=== PATIENT | female | born 1945 | race Caucasian/White ===

== ENCOUNTER 2016-08-14 09:02 | Observation (INO) | payer OTHER ==
[~2016-08-14] VITALS: Ht 160 cm; Wt 107.9 kg
[~2016-08-14 09:02] MED LIST: ANASTROZOLE1 MG PO; ARIMIDEX1 MG; ASPIRIN81 M1; CALTRATE 6001 TABLET PO; CALTRATE 600600 MG; CELEBREX200 MG PO; CLEOCIN300 MG PO; COZAAR50 MG PO; FOLIC ACID1 MG PO; FUROSEMIDE40 MG PO; HYDROCHLOROTHIA50 MG PO; HYDROXYCHLOROQ200 MG PO; LANSOPRAZOLE30 MG PO; LEVOTHYROXINE50 MCG PO; LIPITOR40 MG PO; LO-DOSE ASPIRIN81 M1 PO; LORAZEPAM0.5 MG PO; LOSARTAN POTASS50 MG PO; LOW DOSE ASPIRI81 M1 PO; METHOTREXATE2.5 MG PO; PLAQUENIL200 MG PO; PREDNISONE5 MG PO; PREVACID30 MG PO; SINGULAIR10 MG; SINGULAIR10 MG PO; SPIRIVA1 INHALATI IH; SYNTHROID50 MCG PO; TRAMADOL HCL50 MG PO; ULTRAM50 MG; ULTRAM50 MG PO; VENTOLIN HFA18 GM IH; VITAMIN B12-FO1 EACH PO; VITAMIN D250000 UNIT PO
[2016-08-14 09:53] LABS: HEMATOCRIT 37.7 % (36.0-46.0); MCH 31.5 PG (29.0-34.0); MCHC 32.9 G/DL (30.0-36.0); MCV 95.7 FL (83-99); MEAN PLAT.VOLUME 9.3 uM^3 (9.5-12.4); PLATELET COUNT 265 K/uL (156-360); RBC DIS.WIDTH-CV 14.6 % (11.8-14.6); RBC DIS.WIDTH-SD 50.8 % (39-53); RED BLOOD COUNT 3.94 M/uL (3.80-5.20); WHITE BLOOD COUNT 6.1 K/uL (4.1-10.2)
[2016-08-14 10:01] LABS: CHLORIDE 101 mEq/L (99-109); POTASSIUM 3.6 mEq/L (3.7-5.4); SODIUM 139 mEq/L (136-147)
[2016-08-14 10:03] LABS: GLUCOSE 86 mg/dL (70-99)
[2016-08-14 10:05] LABS: ANION GAP 14 MEQ/L (2-14)
[2016-08-14 10:07] LABS: GFR ESTIMATE (CALCULATED) 58 mL/min/
[2016-08-14 10:08] LABS: UREA NITROGEN (BUN) 27 mg/dL (9-23)
[2016-08-14 10:13] LABS: TROP-I INTERPRETATION NEGATIVE; TROPONIN-I < 0.01 ng/mL (0.0-0.30)
[2016-08-14] MEDS ORDERED: ERGOCALCIF50000 UNIT PO (11:18)
[2016-08-14] MEDS ORDERED: BREO ELLIPTA I1 EACH IH (11:24)
[2016-08-14] MEDS ORDERED: TYLENOL EXTRA500 MG PO (11:25)
[2016-08-14] MEDS ORDERED: ALLERGY RELIE15.8 ML BOTH NARES (11:26)
[2016-08-14] MEDS ORDERED: KEFLEX500 MG PO (11:30)
[2016-08-14 15:00] VITALS: BP 140/60
[2016-08-14 15:07] LABS: D-DIMER ELISA 0.41 mg/L FEU (< 0.57)
[2016-08-14 16:00] VITALS: BP 123/59
[2016-08-14 18:27] LABS: TROP-I INTERPRETATION NEGATIVE; TROPONIN-I < 0.01 ng/mL (0.0-0.30)
[2016-08-14 20:13] VITALS: BP 134/59
[2016-08-15 00:45] VITALS: BP 122/65; BP 135/63
[2016-08-15 01:13] LABS: TROP-I INTERPRETATION NEGATIVE; TROPONIN-I < 0.01 ng/mL (0.0-0.30)
[2016-08-15 03:27] VITALS: BP 160/64
[2016-08-15 05:46] LABS: HEMATOCRIT 35.3 % (36.0-46.0); MCH 31.2 PG (29.0-34.0); MCV 97.5 FL (83-99); MEAN PLAT.VOLUME 10.3 uM^3 (9.5-12.4); PLATELET COUNT 254 K/uL (156-360); RBC DIS.WIDTH-CV 14.9 % (11.8-14.6); RBC DIS.WIDTH-SD 53.1 % (39-53); RED BLOOD COUNT 3.62 M/uL (3.80-5.20); WHITE BLOOD COUNT 6.4 K/uL (4.1-10.2)
[2016-08-15 06:27] LABS: ANION GAP 11 MEQ/L (2-14); CHLORIDE 102 MEQ/L (99-109); GFR ESTIMATE (CALCULATED) > 59 mL/min/; GLUCOSE 84 mg/dL (70-99); POTASSIUM 3.1 MEQ/L (3.7-5.4); SAMPLE HEMOLYSIS CHECK 0; SAMPLE ICTERIC CHECK 0; SAMPLE LIPEMIA CHECK 0; SODIUM 140 MEQ/L (136-147); UREA NITROGEN (BUN) 21 mg/dL (9-23)
[2016-08-15 07:38] VITALS: BP 137/60
[2016-08-15 07:50] VITALS: BP 112/69
[2016-08-15] MEDS ORDERED: LIDOCAINE700 MG TD (09:46)
[2016-08-15 10:33] VITALS: BP 140/65
== END 2016-08-15 11:27 | disposition home or self-care (01) ==
LOC: EME 09:02 → 5WEST 13:39 → EDOF 13:39 → 5WEST 14:51
PROVIDERS: Emergency Medicine; Hospitalist
DX: M54.12 Radiculopathy, cervical region (principal); R07.9 Chest pain, unspecified; M06.9 Rheumatoid arthritis, unspecified; E66.01 Morbid (severe) obesity due to excess calories; Z85.3 Personal history of malignant neoplasm of breast; M25.512 Pain in left shoulder; M25.612 Stiffness of left shoulder, not elsewhere classified; Z68.41 Body mass index [BMI] 40.0-44.9, adult
CPT/HCPCS: 71020; 72125; 73030; 80048; 84484; 85027; 85379; 93005; 94640 76; 99202; 99281; 99285; G0378

== ENCOUNTER 2017-05-11 06:23 | Emergency (ER) | payer OTHER ==
[~2017-05-11] VITALS: Ht 160 cm; Wt 107.2 kg
[~2017-05-11 06:23] MED LIST changes: +ALLERGY RELIE15.8 ML BOTH NARES; +BREO ELLIPTA I1 EACH IH; +ERGOCALCIF50000 UNIT PO; +KEFLEX500 MG PO; +LIDOCAINE700 MG TD; +TYLENOL EXTRA500 MG PO
[2017-05-11 08:41] LABS: BASOPHIL COUNT 0.1 K/uL (0-0.1); EOSINOPHIL (%) 2.9 % (0-5); EOSINOPHIL COUNT 0.2 K/uL (0-0.3); HEMATOCRIT 35.9 % (36.0-46.0); IMMATURE GRANULOCYTE (%) 0.3 % (0.0-0.7); INSTRUMENT ABS NEUTROPHIL CT 4.5 K/uL; LYMPHOCYTE COUNT 1.4 K/uL (1.0-2.8); MCH 30.6 PG (29.0-34.0); MCHC 32.9 G/DL (30.0-36.0); MEAN PLAT.VOLUME 9.9 uM^3 (9.5-12.4); MONOCYTE (%) 9.5 % (3-12); MONOCYTE COUNT 0.7 K/uL (0-0.8); NEUTROPHIL (%) 65.9 % (45-76); NEUTROPHIL COUNT 4.5 K/uL (1.8-6.4); PLATELET COUNT 299 K/uL (156-360); RBC DIS.WIDTH-CV 14.4 % (11.8-14.6); RBC DIS.WIDTH-SD 48.4 % (39-53); RED BLOOD COUNT 3.86 M/uL (3.80-5.20); WHITE BLOOD COUNT 6.8 K/uL (4.1-10.2)
[2017-05-11 08:50] LABS: CHLORIDE 101 mEq/L (99-109); POTASSIUM 3.2 mEq/L (3.7-5.4); SODIUM 139 mEq/L (136-147)
[2017-05-11 08:51] LABS: GLUCOSE 92 mg/dL (70-99)
[2017-05-11 08:53] LABS: ANION GAP 15 MEQ/L (2-14)
[2017-05-11 08:55] LABS: GFR ESTIMATE (CALCULATED) > 59 mL/min/
[2017-05-11 08:56] LABS: UREA NITROGEN (BUN) 18 mg/dL (9-23)
[2017-05-11 10:15] LABS: ADD MIUA? YES; BILIRUBIN NEGATIVE; BLOOD NEGATIVE; COLOR YELLOW ((YELLOW)); GLUCOSE (STRIP) NEGATIVE; KETONES 5; LEUKOCYTES SMALL; NITRITE NEGATIVE; PROTEIN (STRIP) NEGATIVE; SPECIFIC GRAVITY 1.014 (1.000-1.030); UROBILINOGEN 0.2 MG/DL (0.2-1.0)
[2017-05-11 10:31] LABS: BACTERIA RARE /HPF; EPITHELIAL CELLS RARE /HPF; MUCUS TRACE /LPF; RED BLOOD CELLS 0-5 /HPF (0-5); UCUL ADDED? YES
[2017-05-11] MEDS ORDERED: CIPRO500 MG PO (11:54)
[2017-05-11] MEDS ORDERED: ULTRAM50 MG PO (11:54)
[2017-05-11 12:21] VITALS: BP 145/72
== END 2017-05-11 12:30 | disposition home or self-care (01) ==
LOC: EME 06:23
PROVIDERS: Emergency Medicine
DX: N39.0 Urinary tract infection, site not specified (principal); R10.9 Unspecified abdominal pain; M25.551 Pain in right hip; M25.552 Pain in left hip; W10.9XXA Fall (on) (from) unspecified stairs and steps, initial encounter; M54.9 Dorsalgia, unspecified; R51 Headache; J44.9 Chronic obstructive pulmonary disease, unspecified; I10 Essential (primary) hypertension; G43.909 Migraine, unspecified, not intractable, without status migrainosus; K21.9 Gastro-esophageal reflux disease without esophagitis; Z79.82 Long term (current) use of aspirin; Z88.0 Allergy status to penicillin; Z88.8 Allergy status to other drugs, medicaments and biological substances; Z91.040 Latex allergy status; Z87.891 Personal history of nicotine dependence
CPT/HCPCS: 73522; 74176; 80048; 81003; 85025; 87077; 87086; 87186; G8978 GP CJ; G8979 GP CI; G8980 CJ; G8987 GO CI; G8988 GO CH; G8989 GO CI

== ENCOUNTER → 2017-10-07 | Outpatient (CLI) | payer OTHER ==
[~2017-10-07] VITALS: Ht 160 cm; Wt 103.0 kg
[~2017-10-07] MED LIST changes: +CIPRO500 MG PO
[2017-10-07 07:39] LABS: BASOPHIL (%) 0.7 % (0-1); EOSINOPHIL (%) 4.3 % (0-5); EOSINOPHIL COUNT 0.2 K/uL (0-0.3); HEMATOCRIT 39.2 % (36.0-46.0); HEMOGLOBIN 12.3 G/DL (11.9-15.5); IMMATURE GRANULOCYTE (%) 0.2 % (0.0-0.7); LYMPHOCYTE (%) 22.6 % (15-42); LYMPHOCYTE COUNT 1.2 K/uL (1.0-2.8); MCH 30.5 PG (29.0-34.0); MCHC 31.4 G/DL (30.0-36.0); MCV 97.3 FL (83-99); MONOCYTE (%) 7.5 % (3-12); MONOCYTE COUNT 0.4 K/uL (0-0.8); NEUTROPHIL (%) 64.7 % (45-76); NEUTROPHIL COUNT 3.5 K/uL (1.8-6.4); PLATELET COUNT 280 K/uL (156-360); RBC DIS.WIDTH-CV 15.3 % (11.8-14.6); RED BLOOD COUNT 4.03 M/uL (3.80-5.20); WHITE BLOOD COUNT 5.4 K/uL (4.1-10.2)
[2017-10-07 07:44] LABS: INTER. NORMALIZED RATIO 0.9
[2017-10-07 07:47] LABS: PTT 29.8 SEC (25-37)
[2017-10-07 10:01] LABS: ABS NEUTROPHIL COUNT 3.5; ATYPICAL LYMPHOCYTE 0.9 %; EOSINOPHIL ABS CT 0.2; EOSINOPHILS 4.4 % (0-5.0); LYMPHOCYTES 26.3 % (15.0-45.0); MONOCYTES 4.4 % (0-9.0); PLAT.SUFFICIENCY ADEQUATE
[2017-10-10 15:50] LABS: NUMBER OF MARKERS 24; SPECIMEN TYPE BONE MARROW; SPECIMEN VIABILITY 94
== END | disposition home or self-care (01) ==
LOC: OPR 10-06 12:00 → RAD 10-06 13:00 → OPR 06:35 → EDSTATUS 07:00 → OPR 07:00
PROVIDERS: Anesthesiology
PROC: 07DR3ZX Extraction of Iliac Bone Marrow, Percutaneous Approach, Diagnostic (ICD-10-PCS; principal; 2017-10-07)
DX: D47.2 Monoclonal gammopathy (principal); Z85.3 Personal history of malignant neoplasm of breast
CPT/HCPCS: 77012; 85007; 85025; 85610; 85730; J3010